=== PATIENT | male | born 1985 | race Caucasian/White ===

== ENCOUNTER 2017-09-07 21:18 | Emergency (ER) | payer MEDICAID, OTHER | END 2017-09-07 22:10 | disposition home or self-care (01) | LOC: E/R 21:18 | DX: L08.9 Local infection of the skin and subcutaneous tissue, unspecified (principal); B95.8 Unspecified staphylococcus as the cause of diseases classified elsewhere; M79.605 Pain in left leg | CPT/HCPCS: 99284; Z7502 ==

== ENCOUNTER 2017-10-01 21:56 | Emergency (ER) | payer MEDICAID | END 2017-10-02 03:46 | disposition home or self-care (01) | LOC: FTE 21:56 | DX: M25.562 Pain in left knee (principal) | CPT/HCPCS: 99283; Z7502 ==

== ENCOUNTER 2018-07-06 20:00 | Emergency (ER) | payer OTHER, MEDICAID ==
[2018-07-06] MEDS: KETOROLAC 60 MG INJ IM (22:58)
[2018-07-06] MEDS: morphine 4 MG/ML VIAL IM (22:59)
[2018-07-07] MEDS: HYDROCODONE/APAP (10/325) TAB PO (00:42)
== END 2018-07-07 01:54 | disposition left against medical advice (07) ==
LOC: FTE 07-07 01:54
DX: M54.5 Low back pain (principal)
CPT/HCPCS: 96372; 99284-25; J1885

== ENCOUNTER 2018-07-22 22:32 | Emergency (ER) | payer OTHER | END 2018-07-23 03:37 | disposition home or self-care (01) | LOC: FTE 22:32 | DX: M79.605 Pain in left leg (principal) | CPT/HCPCS: 99283; Z7502 ==

== ENCOUNTER 2018-07-27 17:16 | Emergency (ER) | payer OTHER | END 2018-07-27 19:22 | disposition home or self-care (01) | LOC: E/R 17:16 | DX: I83.92 Asymptomatic varicose veins of left lower extremity (principal) | CPT/HCPCS: 99282; Z7502 ==